=== PATIENT | female | born 1990 | race Two or more races ===

== ENCOUNTER 2022-03-22 22:18 | Emergency (ER) | payer MEDICAID ==
[~2022-03-22] VITALS: Ht 167.6 cm; Wt 104.3 kg
--- NOTE | 2022-03-22 23:26 | NUR ---
PT BIBSELF C/O PAIN AND DISCOMFORT WITH URINATION X1DAY. NV BREATHING EVENLY AND UNLABORED. PT ATTACHED TO MONITOR AND POX.
[2022-03-22 23:37] LABS: BILIRUBIN,URINE NEGATIVE (NEGATIVE); COLOR,URINE YELLOW (YELLOW); LEUKOCYTE ESTERASE ,URINE MODERATE (NEGATIVE); NITRITE, URINE NEGATIVE (NEGATIVE); PROTEIN,URINE 30 mg/dl (NEGATIVE); UGLUCOSE NEGATIVE (NEGATIVE); UROBILINOGEN,URINE 0.2 EU/dL (0.2)
[2022-03-23] MEDS ORDERED: NITROFURANTOIN/MONOHYDRATE MACROCRYSTALS 100 MG CAPSULE PO ONE
[2022-03-23] MEDS ORDERED: SULF1TAB48 PO (00:01)
[2022-03-23] MEDS ORDERED: NITROFURANTOIN/MONOHYDRATE MACROCRYSTALS 100 MG CAPSULE ONE (00:07)
--- NOTE | 2022-03-23 00:08 | NUR ---
Patient discharged to home in stable condition. Written and verbal after care instructions given. Patient verbalizes understanding of instruction. Pt ambulatory with a steady gait
[2022-03-23] MEDS ORDERED: NITR100C6 PO (00:13)
[2022-03-23 00:21] VITALS: BP 135/80
[2022-03-23 06:48] LABS: BACTERIA,URINE Moderate /HPF (None Seen); SQUAMOUS EPITHELIAL CELL,UR Moderate /HPF (None Seen); WBC,URINE 21-50 /HPF (0-3)
[2022-03-23 06:49] LABS: MUCUS,URINE Few /LPF (None Seen)
== END 2022-03-23 00:08 | disposition home or self-care (01) ==
LOC: ER 22:28
DX: N39.0 Urinary tract infection, site not specified (principal); Z79.899 Other long term (current) drug therapy
CPT/HCPCS: 81001; 84703-TC; 87086-TC

== ENCOUNTER 2023-10-19 13:20 | Emergency (ER) | payer MEDICAID, OTHER ==
[~2023-10-19] VITALS: Ht 167.6 cm; Wt 106.6 kg
[~2023-10-19 13:20] MED LIST: NITR100C6 PO
[2023-10-19 13:30] VITALS: BP 134/78; TEMP 98.8; O2SAT 96
[2023-10-19] MEDS ORDERED: GUAI-671 PO (15:16)
== END 2023-10-19 15:37 | disposition home or self-care (01) ==
LOC: ER 13:20
DX: J06.9 Acute upper respiratory infection, unspecified (principal)
CPT/HCPCS: 86403-TC

== ENCOUNTER 2024-12-09 16:56 | Emergency (ER) | payer OTHER ==
[~2024-12-09] VITALS: Ht 167.6 cm; Wt 113.4 kg
[~2024-12-09 16:56] MED LIST changes: +GUAI-671 PO
[2024-12-09 17:38] VITALS: BP 134/80; TEMP 98.5
[2024-12-09] MEDS: KETOROLAC TROMETHAMINE INJ 30 MG/ML VIAL IM ONE (18:20)
[2024-12-09] MEDS ORDERED: KETOROLAC TROMETHAMINE INJ 30 MG/ML VIAL ONE (18:23)
[2024-12-09 18:49] VITALS: O2SAT 99
== END 2024-12-09 18:50 | disposition home or self-care (01) ==
LOC: ER 17:10
DX: S69.81XA Other specified injuries of right wrist, hand and finger(s), initial encounter (principal); F17.200 Nicotine dependence, unspecified, uncomplicated; M79.644 Pain in right finger(s); X50.1XXA Overexertion from prolonged static or awkward postures, initial encounter; Y93.89 Activity, other specified; Y92.89 Other specified places as the place of occurrence of the external cause; Y99.8 Other external cause status
CPT/HCPCS: 99284; 96372; 73140; 84703; J1885